=== PATIENT | female | born 1995 | race Two or more races ===

== ENCOUNTER 2024-06-23 12:03 | Emergency (ER) | payer OTHER, SELFPAY ==
[2024-06-23 12:51] VITALS: BP 111/75; PULSE 74; RESP 17; TEMP 36.6; O2SAT 100; BMI 25.4
--- NOTE | 2024-06-23 12:52 | XR_ITS ---
Examination: Complete OB ultrasound, less than 14 weeks, transabdominal Date and time of exam: June 23, 2024 1307 hours INDICATIONS: Vaginal bleeding beginning 2 days ago with cramping Technique: Obstetrical ultrasound images less than 14 weeks performed via transabdominal imaging Findings: A normal shaped single intrauterine gestation is present in the uterus. pole 1.8 cm corresponds to 8 weeks 2 days gestational age Cardiac motion 166 BPM Subchorionic hemorrhage 2.2 x 0.8 x 1.6 cm Ultrasonographic survey of visible structures unremarkable. Amniotic fluid volume appears appropriate for this estimated gestational age. Right ovary 3.4 x 2.0 x 2.3 cm arterial flow 11 mm follicular cyst Left ovary 3.9 x 2.4 x 2.8 cm arterial flow IMPRESSION: Viable intrauterine gestation 8 weeks 2 days, recommend short-term follow-up pelvic sonography given the patient's subchorionic hemorrhage.
[2024-06-23 13:07] LABS: Basophils % (Auto) 0 % (0-2.5); Eosinophils % (Auto) 1 % (0-10); Hematocrit 39.7 % (36.0-46.0); Hemoglobin 13.5 g/dL (12.0-16.0); Immature Granulocytes % (Auto) 0 % (0-0); Immature Granulocytes Auto 0.01 Thou/mm3 (0.00-0.00); Lymphocytes # (Auto) 1.5 Thou/mm3 (1.0-4.8); Lymphocytes % (Auto) 24 % (10-50); Mean Corpuscular Volume 88 fL (80-100); Monocytes # (Auto) 0.5 Thou/mm3 (0.0-0.8); Monocytes % (Auto) 8 % (0-12); Neutrophils # (Auto) 4.1 Thou/mm3 (1.8-7.7); Neutrophils % (Auto) 67 % (37-80); Nucleated Red Blood Cell % 0 /100 WBC (0); Platelet Count 230 Thou/mm3 (140-440); RDW Standard Deviation 38.9 fL (36.4-46.3); White Blood Count 6.1 Thou/mm3 (3.6-11.0)
[2024-06-23 14:17] LABS: Alanine Aminotransferase 18 U/L (10-49); Albumin, Serum 4.6 gm/dL (3.5-5.0); Albumin/Globulin Ratio 1.8 (1.2-2.2); Alkaline Phosphatase 65 U/L (46-116); Anion Gap 4 (7-16); Aspartate Amino Transferase 17 U/L (0-34); BUN/Creatinine Ratio 9 Ratio (12-20); Beta HCG,Quantitative 50795 mIU/mL (<5.0); Bilirubin,Total 0.4 mg/dL (0.3-1.2); Blood Urea Nitrogen 7 mg/dL (9-23); Calcium 9.4 mg/dL (8.3-10.6); Calcium (Corrected) 9.4 mg/dL (8.5-10.1); Carbon Dioxide 25.6 mMol/L (20.0-31.0); Chloride 105 mMol/L (98-107); Creatinine (Component) 0.8 mg/dL (0.6-1.3); Estimated Creatinine Clearance 96.9 mL/min (>60); Globulin 2.6 gm/dL (2.3-3.5); Glucose 72 mg/dL (74-106); Osmolality,Calculated 267 (275-295); Potassium 4.3 mMol/L (3.4-5.1); Sodium 135 mMol/L (136-145); Total Protein 7.2 gm/dL (5.7-8.2); eGFR > 60 See Note
--- NOTE | 2024-06-23 14:23 | PD.EDFMALE ---
ED Female Urogenital RME/HPI General Chief complaint: Urogenital-Female Stated complaint: SPOTTING x 2 DAYS, 8 WEEKS PREG Time Seen by Provider: 06/23/24 12:48 Arrival date/time: 06/23/24 12:03 28-year-old female presents emergency department complaints of vaginal spotting ongoing x 2 weeks patient reports being approximately 8 weeks patient reports she was diagnosed with a subchorionic hemorrhage recently and wants make sure that everything is okay with her baby Limitations: no limitations Related Data Allergies Allergy/AdvReac Type Severity Reaction Status Date / Time argueta Allergy Severe Hives Verified 06/23/24 12:06 Review of Systems Review of Systems Systems Reviewed: All systems reviewed, normal except as documented Constitutional Constitutional: Reports system reviewed and no additional complaints, except as documented, Denies fever(s) and Denies headache(s) Eyes Eyes: Reports system reviewed and no additional complaints, except as documented and Denies blurry vision ENT Ears, Nose, Mouth, and Throat: Reports system reviewed and no additional complaints, except as documented, Denies headache(s), Denies nasal congestion and Denies nasal discharge Cardiovascular Cardiovascular: Reports system reviewed and no additional complaints, except as documented, Denies chest pain and Denies dyspnea Respiratory Respiratory: Reports system reviewed and no additional complaints, except as documented, Denies chest congestion, Denies cough and Denies dyspnea Gastrointestinal Gastrointestinal: Reports system reviewed and no additional complaints, except as documented and Denies abdominal pain Genitourinary Genitourinary: Reports system reviewed and no additional complaints, except as documented and Reports abnormal vaginal bleeding Integumentary/Breasts Skin/Breast: Reports system reviewed and no additional complaints, except as documented and Denies rash Neurologic Neurologic: Reports system reviewed and no additional complaints, except as documented, Reports as per HPI and Denies headache(s) Past Medical History Social History SMOKING STATUS: Never smoker ED Exam General Limitations: Present no limitations General appearance: Present alert and in no apparent distress Head Head exam: Present atraumatic, normocephalic and normal inspection Eye Eye exam: Present normal appearance, PERRL and EOMI; Absent conjunctival injection ENT ENT exam: Present normal exam, normal oropharynx and mucous membranes moist Neck Neck exam: Present normal inspection, full ROM and trachea midline Chest Chest inspection: Present normal inspection and symmetric chest wall rise Respiratory Respiratory exam: Present normal lung sounds bilaterally; Absent respiratory distress Cardiovascular Cardiovascular exam: Present regular rate, normal rhythm and normal heart sounds Abdominal Exam Abdominal exam: Present soft and normal bowel sounds; Absent distention, tenderness, guarding, rebound or rigidity Abdominal tenderness: Absent RUQ or RLQ Extremities Exam Extremities exam: Present normal inspection and full ROM Back Exam Back exam: Present normal inspection and full ROM Neurological Exam Neurological exam: Present alert, oriented X3 and CN II-XII intact Psychiatric Psychiatric exam: Present normal affect and normal mood Skin Skin exam: Present warm, dry, intact and normal color Course Quality Measures none Orders Category Date Time Status US OB <= 14 weeks fetus Stat Exams 06/23/24 12:52 Completed ABO/RH Type Stat Lab 06/23/24 12:57 Completed Beta HCG,Quantitative Stat Lab 06/23/24 12:57 Completed CBC Stat Lab 06/23/24 12:57 Completed Comprehensive Metabolic Panel Stat Lab 06/23/24 12:57 Completed Vital Signs Vital signs: Vital Signs Temperature 97.9 F 06/23/24 12:51 Pulse Rate 74 06/23/24 12:51 Respiratory Rate 17 06/23/24 12:51 Blood Pressure 111/75 06/23/24 12:51 Pulse Oximetry (%) 100 06/23/24 12:51 Oxygen Delivery Method Room Air 06/23/24 12:51 O2 saturation 100% room air within normal limits Urogenital - Female MDM Narrative MDM Narrative:: 28-year-old female presents emergency department complaints of vaginal spotting ongoing x 2 weeks patient reports being approximately 8 weeks patient reports she was diagnosed with a subchorionic hemorrhage recently and wants make sure that everything is okay with her baby On exam patient well-appearing patient does not appear ill or toxic patient does not appear in acute distress On exam patient has nontender abdomen patient has no active bleeding Lab work as well as ultrasound obtained patient appears a viable at this time hCG is reassuring Patient discharged home in no distress to follow-up with primary care doctor in the next 24 to 48 hours and for any worsening symptoms to return to the ER immediately Patient data External records reviewed:: [facility] previous records Clinical information provided by:: patient Social determinants that could affect healthcare access:: none Patient has the following chronic illnesses:: None How is presenting disease/condition affected by chronic disease/condition?: no chronic disease Evaluation data The following diagnostics were reviewed and interpreted by me:: lab results and radiology exam(s) Lab and/or radiology exams considered but not ordered:: Labs and radiology obtained Interpretation Summary: Reviewed by me Medications / Prescriptions Medications or Prescriptions considered but not ordered:: No meds Medication administrations:: Given no meds Consultations Consultation(s) initiated? (list below): No Diagnosis Urogenital Female Differential Diagnosis: urinary tract infection, ovarian cyst and vaginitis Most likely diagnosis given after review of the tests above:: Ovarian cyst Admission Indicated Admission indicated?: not indicated Admission Request Was there a request for admission?: No Disposition Plan Disposition Plan: Discharge Discharge Attestation Discharge Attestation: The patient and all family members were given an opportunity to ask questions and understood the discharge instructions. Discharge instructions specifically effects, indications for sooner follow up or return to the emergency department, and the expected course of current diagnosis. Patient condition: Stable Discharge Plan Plan Patient Disposition: HOME (Self Care) Disposition Comment: Stable Prescriptions/Referrals Referrals: No Primary/Family,Physician [Primary Care Provider] - In 1 week Problem List Clinical Impression: Subchorionic bleed, Viable Patient/Caregiver Discharge Instructions Education Materials: What Is Care? Additional Instructions: Please follow with [facility] as discussed for worsening symptoms return immediately Print Language: Prydeinig Stand Alone Forms: Caren Award Info., Work/School Release, Patient Portal Info Letter JENNIFER/JOSUÉ Supervising Physician ANTONIO Supervising Physician: Dr Jeffries
== END 2024-06-23 14:32 | disposition home or self-care (01) ==
PROVIDERS: Nurse Practitioner Primary Care; Emergency Provider Emergency Medicine
DX: O20.9 Hemorrhage in early pregnancy, unspecified (principal); Z3A.08 8 weeks gestation of pregnancy
CPT/HCPCS: 36415; 76801; 80053; 84702; 85025; 86900; 86901; 99284